=== PATIENT | female | born 1940 | race Caucasian/White ===

== ENCOUNTER 2017-03-24 11:13 | Emergency (ER) | payer MEDICARE, OTHER ==
--- NOTE | ~2017-03-24 | ENPV ---
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 Procedure Type of Study: Veins:Lower Extremities DVT Study, Lower Extremity Left. Appropriate Use Criteria:7 Patient Status:Routine. Study Location:ER. Technical Quality:Limited visualization due to body habitus. Velocities are measured in cm/s ; Diameters are measured in cm Right Lower Extremities DVT Study Measurements Right 2D and Doppler Measurements + + + + +------+------+ + !Location !Visualized!Compressibility!Thrombosis!Signal!Reflux!Reflux ! ! ! ! ! ! ! !(sec) ! + + + + +------+------+ + !GSV Thigh !Yes !Yes !None !Phasic!No ! ! + + + + +------+------+ + !Common !Yes !Yes !None !Phasic!No ! ! !Femoral ! ! ! ! ! ! ! + + + + +------+------+ + !Prox !Yes !Yes !None !Phasic!No ! ! !Femoral ! ! ! ! ! ! ! + + + + +------+------+ + !Mid Femoral!Yes !Yes !None !Phasic!No ! ! + + + + +------+------+ + !Dist !Yes !Yes !None !Phasic!No ! ! !Femoral ! ! ! ! ! ! ! + + + + +------+------+ + !Popliteal !Yes !Yes !None !Phasic!No ! ! + + + + +------+------+ + !Gastroc !Yes !Yes !None !Phasic!No ! ! + + + + +------+------+ + !PTV !Yes !Yes !None !Phasic!No ! ! + + + + +------+------+ + !Peroneal !No !Yes !None !Phasic!No ! ! + + + + +------+------+ + Impressions Right Impression normal on comparison Left Impression No DVT seen. Signature dtt: ANDIE MCNEAL dtjenn: 03/24/17 1157 Physician Self Edit
--- NOTE | ~2017-03-24 | ER ---
PATIENT'S NAME: TRISTON GAN [facility] AGE: 76 Y [address] ROOM: [place] [address] LOCATION: [facility] ADMIT DATE: 03/24/2017 ER/Outpatient Report DISCHARGE DATE: FAMILY PHYSICIAN: PHYSICIAN, NO ATTENDING PHYSICIAN: Salty Renner Time of Arrival: 1105 hours. Time of Evaluation: 1105 hours. CHIEF COMPLAINT: Redness on the left leg. HISTORY OF PRESENT ILLNESS: The patient is a 76-year-old female, who presents to the emergency department today with a chief complaint of left leg redness. She reports that she underwent quadriceps tendon repair on February 13 at [place], [place]. She is currently traveling from [place] to back to [place]. She reports some swelling and tenderness of left leg. She has had a dressing over her left incision and has noted some redness and irritation around this. She has not noticed any discharge. She denies any fevers or chills. No nausea or vomiting. No diarrhea or constipation. PAST MEDICAL HISTORY: COPD, asthma, and obstructive sleep apnea. PAST SURGICAL HISTORY: Left total knee, brain tumor, , thyroidectomy, tubal ligation, right toenail, right foot, heart valve. SOCIAL HISTORY: The patient denies any tobacco use. Reports rare alcohol use. Denies any illicit drug use. ALLERGIES: TO ADHESIVE TAPE. MEDICATIONS: Please see list. PRIMARY CARE DOCTOR: In [place], [place]. REVIEW OF SYSTEMS: All systems are reviewed by myself and are negative with the exception of those discussed in the HPI and past medical history. PATIENT'S NAME: TRISTON GAN [facility] AGE: 76 Y [address] ROOM: [place] [address] LOCATION: [facility] ADMIT DATE: 03/24/2017 ER/Outpatient Report DISCHARGE DATE: FAMILY PHYSICIAN: PHYSICIAN, NO ATTENDING PHYSICIAN: Salty Renner PHYSICAL EXAMINATION: VITAL SIGNS: Blood pressure 179/89, pulse 76, respiratory rate 20, temperature 99.2, oxygen saturation 97% on room air. GENERAL: The patient is a 76-year-old female, who appears stated age, obese, in no acute distress. HEENT: Normocephalic, atraumatic. NECK: Supple. There is no nuchal rigidity. CARDIOVASCULAR: Regular rate and rhythm. No murmurs, rubs, or gallops. LUNGS: Clear to auscultation bilaterally. ABDOMEN: Soft, nontender, and nondistended. No rebound, rigidity, or guarding. MUSCULOSKELETAL: The patient is in the left knee brace, decreased range of motion secondary to pain. SKIN: The patient does have erythema noted surrounding the surgical incision site. There is no purulent drainage noted. LABORATORY DATA AND X-RAYS: CBC is unremarkable except for hemoglobin 9.3, hematocrit 28.4, platelet 141. Procalcitonin is less than 0.05. Lactate is 2.0. Ultrasound venous Doppler reveals no evidence of DVT. CMP remarkable for a sodium 129, chloride 94, otherwise unremarkable. IMPRESSION: 1. Rash, left lower extremity. 2. Initial visit. EMERGENCY DEPARTMENT COURSE: The patient was brought back to the examination room. Seen and evaluated by myself. IV is established. Laboratory analysis and imaging are obtained as described above. I have discussed results with the patient and her . I have given the patient 2 g of Rocephin IV. I have written a prescription for doxycycline. I have also given a liter of normal saline IV bolus. The redness has actually improved since we have taken adhesive bandage. This is likely to be more of allergic type reaction; however, I have elected to cover the patient for potential cellulitis. I have asked she follows up with her primary care doctor as soon as possible. The patient is agreeable without further questions at this time. DISPOSITION: The patient discharged home in good condition. PATIENT'S NAME: TRISTON GAN [facility] AGE: 76 Y [address] ROOM: [place] [address] LOCATION: ED ADMIT DATE: 03/24/2017 ER/Outpatient Report DISCHARGE DATE: FAMILY PHYSICIAN: PHYSICIAN, NO ATTENDING PHYSICIAN: Salty Renner DO KJR/maryanl /[id number] d: 03/24/172039 t: 03/25/17 1609, OUTPATIENT REPORT
[2017-03-24 11:40] LABS: BASOPHIL % 0.3 %; EOSINOPHIL % 0.5 %; HEMATOCRIT 28.4 % (33.0-46.0); HEMOGLOBIN 9.3 g/dL (10.0-15.0); IMMATURE GRANULOCYTE # 0.2 K/uL (0.0-0.3); IMMATURE GRANULOCYTE % 2.1 %; LYMPHOCYTE # 1.3 K/uL (0.8-4.0); LYMPHOCYTE % 16.6 %; MCH 27.9 pg (27.0-34.0); MCHC 32.7 gm/dL (32.0-36.5); MCV 85.3 fl (83.0-98.0); MONOCYTE # 1.2 K/uL (0.0-1.0); MONOCYTE % 15.6 %; NEUTROPHIL % 64.9 %; NRBC % 0 /100WBC (0-0.00); PLATELET COUNT 141 K/uL (150-450); RBC 3.33 M/uL (3.50-5.50); RDW-CV 15.7 % (11.9-14.6); WBC 7.7 K/uL (4.0-11.0)
[2017-03-24 12:04] LABS: ALBUMIN 3.6 gm/dL (3.5-5.0); ALK PHOS 78 IU/L (33-138); ALT 25 IU/L (12-78); ANION GAP 13.3 (10.0-19.0); AST 12 IU/L (10-40); BLOOD UREA NITROGEN 24 mg/dL (6-24); CALCIUM 8.5 mg/dL (8.5-10.5); CHLORIDE 94 mMol/L (96-110); CO2 26 mMol/L (22-32); CREATININE 0.9 mg/dL (0.5-1.1); ESTIMATED GFR (MDRD EQUATION) > 60; POTASSIUM 4.3 mMol/L (3.7-5.1); SODIUM 129 mMol/L (135-145); TOTAL BILIRUBIN 0.5 mg/dL (0.0-1.5); TOTAL PROTEIN 7.4 g/dL (6.0-8.4)
== END 2017-03-24 14:37 | disposition disaster alternative care site (69) ==
LOC: GMED 11:13
PROVIDERS: Emergency Medicine
DX: R21 Rash and other nonspecific skin eruption (principal); J44.9 Chronic obstructive pulmonary disease, unspecified; G47.33 Obstructive sleep apnea (adult) (pediatric); Z90.89 Acquired absence of other organs; Z98.890 Other specified postprocedural states; Z98.51 Tubal ligation status; Z91.048 Other nonmedicinal substance allergy status; Z85.841 Personal history of malignant neoplasm of brain; Z95.2 Presence of prosthetic heart valve; Z79.01 Long term (current) use of anticoagulants; Z79.4 Long term (current) use of insulin; Z79.899 Other long term (current) drug therapy
CPT/HCPCS: J0696; J7030